=== PATIENT | female | born 1980 | race Caucasian/White ===

== ENCOUNTER 2017-10-01 07:31 | Day surgery (SDC) | payer BC, MEDICAID ==
[2017-09-25 12:49] LABS: CLARITY,URINE CLEAR (Clear); COLOR,URINE YELLOW (Yellow); GLUCOSE, URINE >=1000 mg/dl (Neg); KETONES,URINE NEGATIVE (Neg); LEUKOCYTE ESTERASE ,URINE NEGATIVE (Neg); NITRITES, URINE NEGATIVE (Neg); OCCULT BLOOD,URINE LARGE (Neg); PROTEIN,URINE NEGATIVE (Neg); UROBILINOGEN,URINE 0.2 E.U/dL (0.2-1.0)
[2017-09-25 12:50] LABS: BASOPHILS % (AUTO) 0.7 % (0-1); EOSINOPHILS # (AUTO) 0.2 X10'3 (0-0.9); EOSINOPHILS % (AUTO) 2.6 % (0-6); LYMPHOCYTES # (AUTO) 1.7 X10'3 (1.1-4.8); LYMPHOCYTES % (AUTO) 25.8 % (21-51); MEAN CORPUSCULAR HEMOGLOBIN 31.7 PG (27.0-31.0); MEAN CORPUSCULAR HGB CONC 34.3 % (33.0-36.5); MEAN CORPUSCULAR VOLUME 92.5 FL (78-98); MEAN PLATELET VOLUME 10.4 FL (7.4-10.4); MONOCYTES # (AUTO) 0.4 X10'3 (0-0.9); NEUTROPHILS # (AUTO) 4.3 X10'3 (1.8-7.7); NEUTROPHILS % (AUTO) 64.9 % (42-75); PRE OP HEMOGLOBIN 14.4 g/dL (12.0-16.0); PRE OP PLATELET COUNT 259 X10'3 (140-440); RED BLOOD COUNT 4.54 X10'6 (4.20-5.60); RED CELL DISTRIBUTION WIDTH 12.6 % (11.5-14.5)
[2017-09-25 12:58] LABS: RBC,URINE 20-50 /HPF (0-2); UA COLLECTION TYPE NON-SPECIFIED; WBC,URINE 0-4 /HPF (0-4)
[2017-09-25 12:59] LABS: BACTERIA,URINE NONE SEEN /HPF (Neg); MUCUS STRANDS NONE SEEN /LPF (Neg); SQUAMOUS EPITHELIAL CELL,UR MODERATE /LPF (FEW)
[2017-09-25 13:07] LABS: ALBUMIN 3.9 G/DL (3.4-5.0); ALBUMIN/GLOBULIN RATIO 1.1 (1.1-1.5); ALKALINE PHOSPHATASE 119 IU/L (46-116); BLOOD UREA NITROGEN 14 MG/DL (7-18); BUN/CREATININE RATIO 18.4 (6.6-38.0); CALCIUM 8.9 MG/DL (8.5-10.1); CHLORIDE 102 MMOL/L (99-107); CREATININE 0.76 MG/DL (0.40-0.90); PRE OP ALT 24 U/L (30-65); PRE OP ANION GAP 9 (8-16); PRE OP AST 13 U/L (10-37); PRE OP BILIRUB, TOTAL 1.3 MG/DL (0.0-1.0); PRE OP POTASSIUM 3.9 MMOL/L (3.4-5.1); PRE OP SODIUM 139 MMOL/L (135-145); TOTAL CARBON DIOXIDE 27.7 MMOL/L (24-32); TOTAL PROTEIN 7.6 G/DL (6.4-8.2); eGFR 86 ML/MIN
[2017-09-25 13:10] LABS: PRE OP GLUCOSE 279 MG/DL (70-104)
[2017-09-25 13:23] LABS: HCG SERUM QL NEGATIVE
[~2017-10-01] VITALS: Ht 165.1 cm; Wt 56.0 kg
[~2017-10-01 07:31] MED LIST: INSU100C10 SQ; INSU100V9 SQ; clindamycin-Cleocin 900mg/D5W 50 ML IV ONE; famotidine 20mg tablet PO ONE; ringers solution, lacted 1,000 ML IV SCH
[2017-10-01 07:45] VITALS: BP 105/70
[2017-10-01] MEDS ORDERED: dextrose 50%-water 50ml dispensing syringe IV ONE (08:45)
[2017-10-01] MEDS ORDERED: BUPIVAcaine/PF 7.5mg/ml (0.75%) 10ml vial ONE ×2 (08:52→08:53)
[2017-10-01] MEDS ORDERED: epiNEPHrine 1 mg/ml inj ONE (08:53)
[2017-10-01] MEDS ORDERED: sevoflurane 250ml liquid IH ONE (10:12)
[2017-10-01] MEDS ORDERED: ondansetron/PF 4mg/2ml inj ONE (10:12)
[2017-10-01] MEDS ORDERED: glycopyrrolate 0.2mg/ml inj ONE (10:12)
[2017-10-01] MEDS ORDERED: dexamethasone sod phosphate 10mg/ml inj ONE (10:12)
[2017-10-01] MEDS ORDERED: neostigmine methylsulfate 1 MG/ML 10ml vial ONE (10:12)
[2017-10-01] MEDS ORDERED: midazolam 2 mg/2 ml injection ONE (10:15)
[2017-10-01] MEDS ORDERED: fentaNYL/PF 50MCG/1 ML 2ML syringe ONE (10:16)
[2017-10-01] MEDS ORDERED: ROPIVAcaine 0.5% (5mg/ml) 30ml vial ONE (10:40)
[2017-10-01 11:13] VITALS: BP 141/95
[2017-10-01 11:23] VITALS: BP 133/90
[2017-10-01] MEDS ORDERED: ringers solution, lacted 1,000 ML IV SCH (11:24)
[2017-10-01] MEDS ORDERED: meperidine/PF 25mg/ml syringe IV PRN ×3 (11:25)
[2017-10-01] MEDS ORDERED: morphine 4 MG/ML inj SYRINge IV PRN ×2 (11:25)
[2017-10-01] MEDS ORDERED: proCHLORperazine 10 MG/2 ml inj IV PRN (11:25)
[2017-10-01] MEDS ORDERED: ondansetron/PF 4mg/2ml inj IV PRN (11:25)
[2017-10-01 11:33] VITALS: BP 128/87
[2017-10-01 11:43] VITALS: BP 135/84
[2017-10-01 11:53] VITALS: BP 126/83
== END 2017-10-01 12:03 | disposition home or self-care (01) ==
LOC: PAS 07:31
PROVIDERS: ATTEND Obstetrics & Gynecology Obstetrics
DX: Z30.2 Encounter for sterilization (principal); E11.9 Type 2 diabetes mellitus without complications; M19.90 Unspecified osteoarthritis, unspecified site; G43.909 Migraine, unspecified, not intractable, without status migrainosus; I10 Essential (primary) hypertension; F17.210 Nicotine dependence, cigarettes, uncomplicated; J45.998 Other asthma; Z79.1 Long term (current) use of non-steroidal anti-inflammatories (NSAID); Z79.891 Long term (current) use of opiate analgesic; Z88.0 Allergy status to penicillin; Z88.2 Allergy status to sulfonamides; Z88.1 Allergy status to other antibiotic agents; Z86.73 Personal history of transient ischemic attack (TIA), and cerebral infarction without residual deficits; Z79.4 Long term (current) use of insulin; Z88.8 Allergy status to other drugs, medicaments and biological substances; Z79.899 Other long term (current) drug therapy; Z98.890 Other specified postprocedural states
CPT/HCPCS: 36415; 58661; 80053; 81001; 82948; 84703; 85025; 86885; 86900; 86901; J1100; J2250; J2405; J2710; J2795; J3010; J3490; J7120; A7000; J0171